=== PATIENT | female | born 1990 | race Caucasian/White ===

== ENCOUNTER 2016-10-19 07:38 | Day surgery (SDC) | payer OTHER ==
[~2016-10-19 07:38] MED LIST: Lactated Ringers 1,000 ML IV SCH; Lidocaine 2% 5 ML SDV ONE; Midazolam 1 MG/ML 2 ML SDV ONE; Propofol 200 MG/20 ML SDV ONE; fentaNYL 100 MCG/2 ML SDV ONE
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
--- NOTE | 2016-10-19 09:08 | PCM.OPNOTE ---
- General Post-Op/Procedure Note Date of Surgery/Procedure: 10/19/16 Operative Procedure(s): Esophagogastroduodenoscopy with duodenal, antral and proximal gastric biopsies. Colonoscopy with cecal biopsy. Pre Op Diagnosis: Epigastric pain. Abdominal bloating. Change in bowel habits. Family history of Whitehead's esophagus. Post-Op Diagnosis: Gastritis. No acute colonic neoplasia Anesthesia Technique: MAC (ASA II) Primary Surgeon: Mark Black Condition: Good Free Text/Narrative:: DICTATION [id number] and [id number] CPT code 53625 and [id number]
[2016-10-19] MEDS ORDERED: Lactated Ringers 1,000 ML IV SCH (09:15)
--- NOTE | 2016-10-19 09:30 | PCM.POSTAN ---
POST ANESTHESIA ASSESSMENT - MENTAL STATUS Mental Status: alert - RESPIRATORY Respiratory Status: respiratory rate WNL - CARDIOVASCULAR CV Status: pulse rate WNL - GASTROINTESTINAL GI Status: no symptoms - PAIN Pain Score: 0 - POST OP HYDRATION Hydration Status: adequate & stable
--- NOTE | 2016-10-19 09:30 | PCM48HPAN ---
Post Anesthesia Note - EVALUATION WITHIN 48HRS OF ANESTHETIC Vital Signs in Normal Range: Yes Patient Participated in Evaluation: Yes Respiratory Function Stable: Yes Airway Patent: Yes Cardiovascular Function Stable: Yes Hydration Status Stable: Yes Pain Control Satisfactory: Yes Nausea and Vomiting Control Satisfactory: Yes Mental Status Recovered: Yes
[2016-10-19 09:33] VITALS: BP 101/56
--- NOTE | 2016-10-19 13:34 | OR ---
SURGEON: Mark Black M.D. DATE OF PROCEDURE: 10/19/2016 OPERATION PERFORMED: Esophagogastroduodenoscopy with biopsy. ANESTHESIA: MAC. ASA CLASSIFICATION: II. PREOPERATIVE DIAGNOSIS: Epigastric pain with abdominal bloating. POSTOPERATIVE DIAGNOSIS: Gastritis. DESCRIPTION OF PROCEDURE: The patient was taken to the endoscopy room and positioned on the endoscopy table in the supine position. Time-out was called for appropriate identification of the patient and procedure. Monitored anesthesia care was provided. The bite-block was placed between the patient's teeth. The gastroscope was inserted through the bite-block, into the oropharynx, and advanced without difficulty through the esophagus and stomach into the duodenum, where examination was carried out in a retrograde fashion. Duodenum shows no acute inflammatory changes. Given her history of abdominal bloating, duodenal biopsies were obtained. The gastroscope was withdrawn into the stomach, which shows a very mild gastritis in the distal stomach. Biopsies of the antrum were obtained. The gastroscope was then retroflexed and along the lesser curvature was a significant area of gastritis. Separate biopsies of this area were obtained. No acute ulcerations or tumor masses were noted. As the scope was withdrawn, the greater and lesser curvatures were carefully visualized. The stomach was then aspirated. The GE junction was well defined and shows no acute inflammatory changes. The esophagus demonstrated good contractility. No mid or proximal lesions were identified. The vocal cords were visualized as the scope was withdrawn and noted to move symmetrically. The gastroscope was then removed. The patient tolerated this portion of the procedure well. Following colonoscopy, she was taken to recovery room in stable condition. JARRED / JOHN /[id number]
--- NOTE | 2016-10-19 13:46 | OR ---
SURGEON: Mark Black M.D. DATE OF PROCEDURE: 10/19/2016 OPERATION PERFORMED: Colonoscopy with cecal biopsy. ANESTHESIA: MAC. ASA CLASSIFICATION: II. PREOPERATIVE DIAGNOSIS: Change in bowel habits with abdominal bloating. POSTOPERATIVE DIAGNOSIS: No acute neoplasia. DESCRIPTION OF PROCEDURE: With the patient having completed esophagogastroduodenoscopy, she was now positioned in the left lateral decubitus position. The colonoscope was inserted into the rectum and advanced with minimal difficulty to the cecum, where the colonoscope was retroflexed to visualize the ascending colon from below. The colonoscope was then straightened. Cecum does show some mild nonspecific inflammatory changes. Biopsies of the cecum were obtained. The colonoscope was then slowly withdrawn. The prep was excellent. The cecum, ascending colon, hepatic flexure, transverse colon, splenic flexure, descending colon, sigmoid colon, and rectum were very well visualized. No tumors, polyps, diverticula, or angiodysplastic changes were noted. Once the colonoscope was withdrawn to the rectum, it was retroflexed to visualize the anal orifice from above. Again, no tumors or polyps were seen and there were no acute hemorrhoidal changes. The colonoscope was then straightened, the rectum aspirated, and the colonoscope removed. The patient tolerated the procedure well and was taken to recovery room in stable condition. JARRED LOPEZ /[id number]
== END 2016-10-19 09:45 | disposition home or self-care (01) ==
LOC: MW.SDS 07:38
PROVIDERS: ATTEND Surgery
DX: K29.50 Unspecified chronic gastritis without bleeding (principal); K52.9 Noninfective gastroenteritis and colitis, unspecified; J45.909 Unspecified asthma, uncomplicated; K21.9 Gastro-esophageal reflux disease without esophagitis; E66.9 Obesity, unspecified; F17.210 Nicotine dependence, cigarettes, uncomplicated; Z79.899 Other long term (current) drug therapy; Z83.79 Family history of other diseases of the digestive system
CPT/HCPCS: 43239; 45380; 81025; J2250; J3010; J7120; 00740; 88305; 88312; J2704